=== PATIENT | male | born 1980 | race Hispanic/Latino ===

== ENCOUNTER 2018-08-29 10:13 | Outpatient (CLI) | payer OTHER ==
--- NOTE | 2018-08-29 11:41 | CT ---
CT BRAIN WITHOUT CONTRAST: INDICATIONS: History of hydrocephalus and blurred vision. COMPARISON: None. FINDINGS: There is a right parietal bur hole containing two separate ventriculoperitoneal catheters. The intac t catheter is seen projecting into the left lateral ventricle. There is a displaced, detached cathet er projecting into the right temporal lobe and protruding into the anterior horn of the right lateral ventricle, with associated calcifications along the catheter tip. There is moderate hydrocephalus. The septum pellucidum and third ventricle are midline. There are calcifications overlying the dura bilaterally, likely reflecting sequela of remote subdural hematomas. No definite acute infarct is ev ident. No acute intracranial hemorrhage is demonstrated. The mastoid air cells and paranasal sinuse s are clear. IMPRESSION: 1. Moderate hydrocephalus. 2. Right-sided ventriculoperitoneal catheter entering through a right parietal bur hole projects int o the left lateral ventricle. This catheter is intact. There is a retained detached ventricular cat heter projecting into the right temporal lobe and into the anterior horn of the right lateral ventric le. 3. Calcifications of the dura overlying the frontal parietal convexities bilaterally, left greater t talbot right, likely reflecting sequela of remote subdural hematomas. POS: RAUL
== END 2018-08-29 10:14 | disposition home or self-care (01) ==
LOC: BICCT 10:13
PROVIDERS: ATTEND Neurological Surgery
DX: G91.9 Hydrocephalus, unspecified (principal); G93.89 Other specified disorders of brain
CPT/HCPCS: 70450

== ENCOUNTER 2021-01-10 16:18 | Outpatient (CLI) | payer BC, OTHER | END 2021-01-10 16:19 | disposition home or self-care (01) | LOC: RAD 16:18 | PROVIDERS: ATTEND Neurological Surgery | DX: G91.9 Hydrocephalus, unspecified (principal); Z98.2 Presence of cerebrospinal fluid drainage device | CPT/HCPCS: 75809 ==

== ENCOUNTER 2022-08-11 21:20 | Inpatient (IN) | payer BC ==
[~2022-08-11 21:20] MED LIST: Iopamidol-370 76% 500 ML 1 ML ONE
[2022-08-11] MEDS ORDERED: Ondansetron PF 4 MG/2 ML Vial ONE (21:58)
[2022-08-11] MEDS ORDERED: Morphine 4 MG/ML VIAL ONE ×2 (21:58→23:55)
[2022-08-11 22:12] LABS: #Basophils 0.1 thou/uL (0.0-0.2); #Lymphocytes 1.4 thou/uL (1.20-3.40); #Monocytes 0.5 thou/uL (0.11-0.59); #Neutrophils 10.6 thou/uL (1.40-6.50); %Basophils 0.5 % (0.0-1.0); %Eosinophils 0.4 % (0.0-10.0); %Lymphocytes 11.4 % (21.0-51.0); %Monocytes 3.9 % (0.0-10.0); %Neutrophils 83.9 % (42.0-75.0); Hemoglobin 17.1 g/dL (14.0-18.0); Mean Corpuscular HGB CONC 33.6 g/dL (32.0-36.0); Mean Corpuscular Hemoglobin 29.5 pg (27.0-31.0); Mean Corpuscular Volume 87.9 fl (78.0-98.0); Mean Platelet Volume 6.7 fL (7.4-10.4); Platelet Count 481 10x3/uL (130-400); RBC Distribution Width 11.6 % (11.5-14.5); Red Blood Cell (RBC) Count 5.79 mill/uL (4.70-6.10); White Blood Cell (WBC) Count 12.6 10x3/uL (4.8-10.8)
[2022-08-11 22:33] LABS: ALT (SGPT) 24 U/L (8-55); AST (SGOT) 23 U/L (5-34); Albumin 4.5 g/dL (3.5-5.0); Alkaline Phosphatase 56 U/L (40-110); Anion Gap 13 mmol/L (10-20); BUN (Urea Nitrogen) 15 mg/dL (8.9-20.6); Bilirubin, Total 0.5 mg/dL (0.2-1.2); Calc. Creatinine Clearance 0 mL/min (70-130); Calcium 9.9 mg/dL (7.8-10.44); Carbon Dioxide 24 mmol/L (22-29); Chloride 104 mmol/L (98-107); Estimated GFR 95; Globulin 3.8 g/dL (2.4-3.5); Glucose 130 mg/dL (70-105); Lipase 13 U/L (8-78); Potassium 4.1 mmol/L (3.5-5.1); Protein, Total 8.3 g/dL (6.0-8.3); Sodium 137 mmol/L (136-145)
[2022-08-12] MEDS ORDERED: Ondansetron PF 4 MG/2 ML Vial IVP PRN (00:12)
[2022-08-12] MEDS ORDERED: Morphine 4 MG/ML VIAL SLOW IVP PRN (00:19)
[2022-08-12] MEDS: Lactated Ringer's 1,000 ML IV SCH ×3 (01:45→18:08)
[2022-08-12] MEDS ORDERED: Benzocaine 20% Spray 60 ML CAN ONE (03:02)
[2022-08-12] MEDS ORDERED: hydrALAZINE 20 MG/ML VIAL SLOW IVP PRN (08:48)
[2022-08-12 08:59] LABS: #Basophils 0.1 thou/uL (0.0-0.2); #Eosinphils 0.2 thou/uL (0.0-0.7); #Lymphocytes 2.3 thou/uL (1.20-3.40); #Monocytes 0.7 thou/uL (0.11-0.59); #Neutrophils 6.2 thou/uL (1.40-6.50); %Basophils 0.8 % (0.0-1.0); %Eosinophils 2.6 % (0.0-10.0); %Lymphocytes 24.1 % (21.0-51.0); %Monocytes 7.6 % (0.0-10.0); Mean Corpuscular HGB CONC 32.2 g/dL (32.0-36.0); Mean Corpuscular Hemoglobin 29.3 pg (27.0-31.0); Mean Platelet Volume 6.8 fL (7.4-10.4); Platelet Count 441 10x3/uL (130-400); RBC Distribution Width 11.7 % (11.5-14.5); Red Blood Cell (RBC) Count 5.12 mill/uL (4.70-6.10); White Blood Cell (WBC) Count 9.6 10x3/uL (4.8-10.8)
[2022-08-12 09:15] LABS: ALT (SGPT) 20 U/L (8-55); AST (SGOT) 18 U/L (5-34); Albumin 3.8 g/dL (3.5-5.0); Alkaline Phosphatase 47 U/L (40-110); Anion Gap 13 mmol/L (10-20); BUN (Urea Nitrogen) 14 mg/dL (8.9-20.6); Bilirubin, Total 0.6 mg/dL (0.2-1.2); Calc. Creatinine Clearance 0 mL/min (70-130); Calcium 9.3 mg/dL (7.8-10.44); Carbon Dioxide 23 mmol/L (22-29); Chloride 106 mmol/L (98-107); Estimated GFR 109; Globulin 3.2 g/dL (2.4-3.5); Glucose 100 mg/dL (70-105); Potassium 3.8 mmol/L (3.5-5.1); Sodium 138 mmol/L (136-145)
[2022-08-12] MEDS ORDERED: MD-Gastroview 120 ML BOT ONE (12:06)
[2022-08-12 19:56] VITALS: BMI 33.2
[2022-08-13 07:16] LABS: #Basophils 0.1 thou/uL (0.0-0.2); #Eosinphils 0.4 thou/uL (0.0-0.7); #Lymphocytes 2.3 thou/uL (1.20-3.40); #Monocytes 0.5 thou/uL (0.11-0.59); #Neutrophils 6.1 thou/uL (1.40-6.50); %Basophils 0.7 % (0.0-1.0); %Eosinophils 4.3 % (0.0-10.0); %Lymphocytes 24.5 % (21.0-51.0); %Monocytes 5.6 % (0.0-10.0); %Neutrophils 64.9 % (42.0-75.0); Hemoglobin 14.4 g/dL (14.0-18.0); Mean Corpuscular HGB CONC 33.9 g/dL (32.0-36.0); Mean Corpuscular Hemoglobin 30.2 pg (27.0-31.0); Platelet Count 364 10x3/uL (130-400); RBC Distribution Width 11.3 % (11.5-14.5); Red Blood Cell (RBC) Count 4.78 mill/uL (4.70-6.10); White Blood Cell (WBC) Count 9.4 10x3/uL (4.8-10.8)
[2022-08-13 07:36] LABS: ALT (SGPT) 23 U/L (8-55); AST (SGOT) 21 U/L (5-34); Albumin 3.8 g/dL (3.5-5.0); Alkaline Phosphatase 45 U/L (40-110); Anion Gap 12 mmol/L (10-20); BUN (Urea Nitrogen) 14 mg/dL (8.9-20.6); Bilirubin, Total 0.6 mg/dL (0.2-1.2); Calc. Creatinine Clearance 162 mL/min (70-130); Calcium 8.7 mg/dL (7.8-10.44); Carbon Dioxide 22 mmol/L (22-29); Chloride 104 mmol/L (98-107); Estimated GFR 113; Globulin 2.9 g/dL (2.4-3.5); Glucose 85 mg/dL (70-105); Potassium 3.4 mmol/L (3.5-5.1); Protein, Total 6.7 g/dL (6.0-8.3); Sodium 135 mmol/L (136-145)
[2022-08-13 13:08] VITALS: BP 122/81; TEMP 98.2
== END 2022-08-13 14:57 | disposition home or self-care (01) | DRG 389 ==
LOC: ERS 21:20 → ERHOLD 23:35 → T4-B 08-12 18:32
PROVIDERS: ADMIT Student in an Organized Health Care Education/Training Program; ATTEND Student in an Organized Health Care Education/Training Program
PROC: 0D9670Z Drainage of Stomach with Drainage Device, Via Natural or Artificial Opening (ICD-10-PCS; principal; 2022-08-11)
DX: K56.609 Unspecified intestinal obstruction, unspecified as to partial versus complete obstruction (principal); G91.9 Hydrocephalus, unspecified; Z20.822 Contact with and (suspected) exposure to COVID-19; I10 Essential (primary) hypertension; Z98.890 Other specified postprocedural states; Z90.49 Acquired absence of other specified parts of digestive tract
CPT/HCPCS: 36415; 71045; 74019; 74177; 74250; 80053; 83605; 83690; 85025; 93005; 96361; 96374; 96375; 96376; J1650; J2270; J2405; J7120; Q9963; Q9967; U0003; U0005